=== PATIENT | female | born 1990 | race Caucasian/White ===

== ENCOUNTER 2019-01-29 16:22 | Outpatient (CLI) | payer OTHER ==
[2019-01-29 17:48] LABS: ADD UMIC NO; UR ASCORBIC ACID 40 mg/dL (NEGATIVE); UR BACTERIA FEW /HPF (NONE SEEN); UR BILIRUBIN (Dip) NEGATIVE (NEGATIVE); UR BLOOD (Dip) NEGATIVE (NEGATIVE); UR CLARITY SLIGHTLY CLOUDY (CLEAR); UR COLOR YELLOW (YELLOW); UR GLUCOSE (Dip) NEGATIVE (NEGATIVE); UR KETONES (Dip) TRACE mg/dL (NEGATIVE); UR LEUKOCYTE ESTERASE (Dip) NEGATIVE Leu/ul (NEGATIVE); UR MUCUS MODERATE /HPF (NONE SEEN); UR NITRITE (Dip) NEGATIVE (NEGATIVE); UR RBC 1 /HPF (0-5); UR SPECIFIC GRAVITY (Dip) 1.026 (1.003-1.030); UR SQUAMOUS EPITHELIAL CELL FEW /HPF (FEW); UR TOTAL PROTEIN (Dip) NEGATIVE (NEGATIVE); UR UROBILINOGEN (Dip) 1+ mg/dL (NEGATIVE); UR WBC 2 /HPF (0-5)
[2019-01-29 18:05] LABS: ADD MAN DIFF? NO
[2019-01-29 18:08] LABS: WHITE BLOOD COUNT 10.4 10^3/ul (4.8-10.8)
[2019-01-29 18:08] LABS: BASOPHILS % 0.4 % (0.0-2.0); EOSINOPHILS # 0.2 10^3/ul (0.0-0.5); EOSINOPHILS % 1.8 % (0.0-7.0); HEMATOCRIT 39.9 % (37.0-47.0); LYMPHOCYTES # 2.1 10^3/ul (0.8-2.9); LYMPHOCYTES % 19.8 % (15.0-51.0); MEAN CORPUSCULAR HEMOGLOBIN 28.3 pg (29.0-33.0); MEAN CORPUSCULAR HGB CONC 32.6 g/dl (32.0-37.0); MEAN CORPUSCULAR VOLUME 86.7 fl (82.0-101.0); MONOCYTE # 0.5 10^3/ul (0.3-0.9); MONOCYTES % 4.5 % (0.0-11.0); NEUTROPHIL # 7.6 10^3/ul (1.6-7.5); PLATELET COUNT 324 10^3/UL (140-415); RED CELL DISTRIBUTION WIDTH 13.7 % (11.5-14.5)
[2019-01-29 18:28] LABS: INR 0.91; PARTIAL THROMBOPLASTIN TIME 28.2 Sec (23.0-35.0); PROTIME 12.4 Sec (11.9-14.9)
[2019-01-29 18:33] LABS: ALANINE AMINOTRANSFERASE 14 IU/L (13-69); ALBUMIN 3.5 g/dl (3.3-4.9); ALBUMIN/GLOBULIN RATIO 0.97; ALKALINE PHOSPHATASE 193 IU/L (42-121); ANION GAP 10 (5-13); ASPARTATE AMINO TRANSFERASE 20 IU/L (15-46); BILIRUBIN,INDIRECT 0.3 mg/dl (0-1.1); BILIRUBIN,TOTAL 0.3 mg/dl (0.2-1.3); BLOOD UREA NITROGEN 11 mg/dl (7-20); CARBON DIOXIDE 18 mmol/L (21-31); CHLORIDE 108 mmol/L (97-110); CREATININE 0.56 mg/dl (0.44-1.00); Estimated GFR > 60 mL/min (>60); GLUCOSE 125 mg/dl (70-220); POTASSIUM 3.9 mmol/L (3.5-5.1); SODIUM 136 mmol/L (135-144); TOTAL PROTEIN 7.1 g/dl (6.1-8.1); URIC ACID 6.2 mg/dl (3.1-7.9)
== END 2019-01-29 19:00 | disposition home or self-care (01) ==
LOC: OBT 16:22 → L-D 16:23 → OBT 19:00
DX: O36.8130 Decreased fetal movements, third trimester, not applicable or unspecified (principal); O40.3XX0 Polyhydramnios, third trimester, not applicable or unspecified; Z3A.35 35 weeks gestation of pregnancy
CPT/HCPCS: 76818; 80053; 81001; 81003; 84560; 85025; 85384; 85610; 85730

== ENCOUNTER 2019-02-01 13:47 | Outpatient (CLI) | payer OTHER | END 2019-02-01 15:01 | disposition home or self-care (01) | LOC: OBT 13:47 → L-D 13:47 → OBT 15:01 | DX: O36.8330 Maternal care for abnormalities of the fetal heart rate or rhythm, third trimester, not applicable or unspecified (principal); O40.3XX0 Polyhydramnios, third trimester, not applicable or unspecified; Z3A.35 35 weeks gestation of pregnancy | CPT/HCPCS: 76818 ==

== ENCOUNTER 2019-02-03 14:00 | Outpatient (CLI) | payer OTHER | END 2019-02-03 16:47 | disposition home or self-care (01) | LOC: OBT 14:00 → L-D 14:01 → OBT 16:47 | DX: O40.3XX0 Polyhydramnios, third trimester, not applicable or unspecified (principal); Z3A.36 36 weeks gestation of pregnancy | CPT/HCPCS: 76818 ==

== ENCOUNTER 2019-02-08 03:26 | Outpatient (CLI) | payer OTHER ==
[2019-02-08 04:15] LABS: ADD UMIC NO; UR ASCORBIC ACID 40 mg/dL (NEGATIVE); UR BILIRUBIN (Dip) NEGATIVE (NEGATIVE); UR BLOOD (Dip) NEGATIVE (NEGATIVE); UR CLARITY CLEAR (CLEAR); UR COLOR YELLOW (YELLOW); UR GLUCOSE (Dip) NEGATIVE (NEGATIVE); UR KETONES (Dip) NEGATIVE (NEGATIVE); UR LEUKOCYTE ESTERASE (Dip) NEGATIVE Leu/ul (NEGATIVE); UR NITRITE (Dip) NEGATIVE (NEGATIVE); UR SPECIFIC GRAVITY (Dip) 1.014 (1.003-1.030); UR TOTAL PROTEIN (Dip) NEGATIVE (NEGATIVE); UR UROBILINOGEN (Dip) NEGATIVE (NEGATIVE)
[2019-02-08] MEDS: TERBUTALINE 1 MG/ML INJ SC (04:54)
[2019-02-08] MEDS: LACTATED RINGER'S 1,000 ML IV (04:54)
[2019-02-08] MEDS ORDERED: LACTATED RINGER'S 1,000 ML IV (05:00)
[2019-02-08 05:41] LABS: ADD MAN DIFF? NO
[2019-02-08 05:51] LABS: BASOPHIL # 0.1 10^3/ul (0.0-0.1); BASOPHILS % 0.5 % (0.0-2.0); EOSINOPHILS # 0.4 10^3/ul (0.0-0.5); EOSINOPHILS % 2.7 % (0.0-7.0); HEMATOCRIT 38.8 % (37.0-47.0); HEMOGLOBIN 12.6 g/dl (12.0-16.0); LYMPHOCYTES # 3.1 10^3/ul (0.8-2.9); LYMPHOCYTES % 22.5 % (15.0-51.0); MEAN CORPUSCULAR HEMOGLOBIN 28.4 pg (29.0-33.0); MEAN CORPUSCULAR HGB CONC 32.5 g/dl (32.0-37.0); MEAN CORPUSCULAR VOLUME 87.6 fl (82.0-101.0); MEAN PLATELET VOLUME 10.5 fl (7.4-10.4); MONOCYTE # 0.7 10^3/ul (0.3-0.9); NEUTROPHIL # 9.4 10^3/ul (1.6-7.5); NEUTROPHILS % 68.6 % (39.0-77.0); PLATELET COUNT 298 10^3/UL (140-415); RED BLOOD COUNT 4.43 10^6/ul (4.20-5.40); RED CELL DISTRIBUTION WIDTH 13.5 % (11.5-14.5)
[2019-02-08 05:51] LABS: WHITE BLOOD COUNT 13.8 10^3/ul (4.8-10.8)
[2019-02-08 06:38] LABS: INR 0.89; PARTIAL THROMBOPLASTIN TIME 26.9 Sec (23.0-35.0); PROTIME 12.1 Sec (11.9-14.9); PT RATIO 0.9
[2019-02-08 23:02] LABS: RAPID PLASMA REAGIN NONREACTIVE (NR)
== END 2019-02-08 06:38 | disposition home or self-care (01) ==
LOC: OBT 03:26 → L-D 03:28 → OBT 06:38
DX: O26.893 Other specified pregnancy related conditions, third trimester (principal); M54.9 Dorsalgia, unspecified; O36.8130 Decreased fetal movements, third trimester, not applicable or unspecified; Z3A.36 36 weeks gestation of pregnancy
CPT/HCPCS: 36415; 76815; 76818; 81003; 85025; 85610; 85730; 86592; 86850; 86900; 86901; 87086; 96360; 96361; 96372

== ENCOUNTER 2019-02-11 10:35 | Inpatient (IN) | payer OTHER ==
[~2019-02-11 10:35] MED LIST: METHYLERGONOVINE 0.2 MG INJ
[2019-02-11] MEDS ORDERED: CARBOPROST 250 MCG INJ IM ×3 (12:30→18:30)
[2019-02-11] MEDS ORDERED: OXYTOCIN 30 UNITS/LR 500 ML IV ×5 (12:30→18:30)
[2019-02-11] MEDS ORDERED: CEFAZOLIN 2 GM/50 ML (PMX) 50 ML IVPB ×2 (12:30→13:30)
[2019-02-11] MEDS ORDERED: METHYLERGONOVINE 0.2 MG INJ IM ×3 (12:30→18:30)
[2019-02-11] MEDS ORDERED: MISOPROSTOL 200 MCG TAB PR ×3 (12:30→18:30)
[2019-02-11] MEDS: LACTATED RINGER'S 1,000 ML IV ×2 (12:52→15:09)
[2019-02-11 12:54] LABS: ADD MAN DIFF? NO
[2019-02-11 13:04] LABS: WHITE BLOOD COUNT 11.2 10^3/ul (4.8-10.8)
[2019-02-11 13:04] LABS: BASOPHIL # 0.1 10^3/ul (0.0-0.1); BASOPHILS % 0.5 % (0.0-2.0); EOSINOPHILS # 0.2 10^3/ul (0.0-0.5); EOSINOPHILS % 1.9 % (0.0-7.0); HEMATOCRIT 40.6 % (37.0-47.0); HEMOGLOBIN 13.4 g/dl (12.0-16.0); LYMPHOCYTES # 2.2 10^3/ul (0.8-2.9); MEAN CORPUSCULAR HEMOGLOBIN 28.2 pg (29.0-33.0); MEAN CORPUSCULAR VOLUME 85.3 fl (82.0-101.0); MEAN PLATELET VOLUME 9.8 fl (7.4-10.4); MONOCYTE # 0.4 10^3/ul (0.3-0.9); MONOCYTES % 3.8 % (0.0-11.0); NEUTROPHIL # 8.2 10^3/ul (1.6-7.5); NEUTROPHILS % 73.1 % (39.0-77.0); PLATELET COUNT 302 10^3/UL (140-415); RED BLOOD COUNT 4.76 10^6/ul (4.20-5.40); RED CELL DISTRIBUTION WIDTH 13.6 % (11.5-14.5)
[2019-02-11 13:14] LABS: ADD UMIC NO; UR ASCORBIC ACID NEGATIVE (NEGATIVE); UR BILIRUBIN (Dip) NEGATIVE (NEGATIVE); UR BLOOD (Dip) NEGATIVE (NEGATIVE); UR CLARITY CLEAR (CLEAR); UR COLOR STRAW (YELLOW); UR GLUCOSE (Dip) NEGATIVE (NEGATIVE); UR KETONES (Dip) NEGATIVE (NEGATIVE); UR LEUKOCYTE ESTERASE (Dip) NEGATIVE Leu/ul (NEGATIVE); UR NITRITE (Dip) NEGATIVE (NEGATIVE); UR SPECIFIC GRAVITY (Dip) 1.003 (1.003-1.030); UR TOTAL PROTEIN (Dip) NEGATIVE (NEGATIVE); UR UROBILINOGEN (Dip) NEGATIVE (NEGATIVE)
[2019-02-11 13:17] LABS: INR 0.89; PARTIAL THROMBOPLASTIN TIME 26.7 Sec (23.0-35.0); PROTIME 12.1 Sec (11.9-14.9); PT RATIO 0.9
[2019-02-11 14:39] LABS: AMPHETAMINE/METHAMPHETAMINE Negative (NEGATIVE); BARBITURATES Negative (NEGATIVE); BENZODIAZEPINES Negative (NEGATIVE); CANNABINOIDS Negative (NEGATIVE); COCAINE Negative (NEGATIVE); OPIATES Negative (NEGATIVE)
[2019-02-11 14:51] LABS: HEPATITIS B SURFACE ANTIGEN NEGATIVE (NEGATIVE)
[2019-02-11 15:57] LABS: RAPID PLASMA REAGIN NONREACTIVE (NR)
[2019-02-11] MEDS: CITRIC ACID/NA CITRATE 30 ML CUP PO (16:45)
[2019-02-11] MEDS ORDERED: KETOROLAC 30 MG INJ (16:46)
[2019-02-11] MEDS ORDERED: METOCLOPRAMIDE 10 MG INJ (16:46)
[2019-02-11] MEDS ORDERED: ONDANSETRON 4 MG INJ (16:46)
[2019-02-11] MEDS ORDERED: morphine SULFATE/PF (10 MG/10 ML) INJ (16:46)
[2019-02-11] MEDS ORDERED: LIDOCAINE 1.5%/EPI MPF (SDV) 30 ML VIAL (17:32)
[2019-02-11] MEDS ORDERED: EPHEDrine 25 MG/5 ML SYG (18:20)
[2019-02-11] MEDS ORDERED: PHENYLephrine (100 MCG/ML) 10ML SYG (18:20)
[2019-02-11] MEDS ORDERED: OXYCODONE/ACETAMINOPHEN (5/325) TAB PO (18:30)
[2019-02-11] MEDS: CEFAZOLIN 2 GM/50 ML (PMX) 50 ML IVPB (18:30)
[2019-02-11] MEDS ORDERED: NACL 0.9% 3 ML SYG IV (18:30)
[2019-02-11 18:33] LABS: AADO2 Cord Arterial 22.7 mmHg; Arterial Cord Blood pCO2 88.5 mmHG (25-50); CBA COHb 0.5 %; CBA Total Hemglobin 14.2 g/dl; Cord Blood Arterial pO2 21.1 mmHG (15.0-45.0); Fraction OxyHgb Cord Arterial 24.3 %; MODE ROOM AIR; MetHgb Cord Arterial 2.2 %; Sample Type CBA; Site CORD
[2019-02-11 18:34] LABS: CBV Base Excess -14.5 mmol/L; CBV COHb 0 %; CBV Total Hemglobin 14.2 g/dl; Cord Blood Venous pO2 14.1 mmHG (15.0-45.0); Fraction OxyHgb Cord Venous 13.2 %; MODE ROOM AIR; MetHgb Cord Venous 2.4 %; Sample Type CBV; Site CORD
[2019-02-11] MEDS ORDERED: DIPHENHYDRAMINE 50 MG INJ IV ×2 (19:00)
[2019-02-11] MEDS ORDERED: NALOXONE (0.4 MG/ML) INJ IV (19:00)
[2019-02-11] MEDS ORDERED: ONDANSETRON 4 MG INJ IV ×2 (19:00)
[2019-02-11] MEDS ORDERED: morphine 2 MG INJ IV ×6 (19:00)
[2019-02-11] MEDS ORDERED: KETOROLAC 30 MG INJ IV ×2 (19:00)
[2019-02-11] MEDS: OXYTOCIN 30 UNITS/LR 500 ML IV ×2 (19:09→23:39)
[2019-02-11] MEDS: MISOPROSTOL 200 MCG TAB PO (22:49)
[2019-02-12] MEDS: LACTATED RINGER'S 1,000 ML IV ×3 (02:00→18:00)
[2019-02-12] MEDS: CEFAZOLIN 2 GM/50 ML (PMX) 50 ML IVPB ×3 (02:36→18:23)
[2019-02-12] MEDS: IBUPROFEN 600 MG TAB PO ×3 (06:00→23:55)
[2019-02-12 08:21] LABS: ADD MAN DIFF? NO
[2019-02-12 08:34] LABS: WHITE BLOOD COUNT 12.2 10^3/ul (4.8-10.8)
[2019-02-12 08:34] LABS: BASOPHIL # 0.1 10^3/ul (0.0-0.1); BASOPHILS % 0.6 % (0.0-2.0); EOSINOPHILS # 0.2 10^3/ul (0.0-0.5); EOSINOPHILS % 1.4 % (0.0-7.0); HEMATOCRIT 33.6 % (37.0-47.0); LYMPHOCYTES # 2.1 10^3/ul (0.8-2.9); LYMPHOCYTES % 17.2 % (15.0-51.0); MEAN CORPUSCULAR HEMOGLOBIN 28.1 pg (29.0-33.0); MEAN CORPUSCULAR HGB CONC 32.7 g/dl (32.0-37.0); MEAN CORPUSCULAR VOLUME 85.7 fl (82.0-101.0); MEAN PLATELET VOLUME 10.1 fl (7.4-10.4); MONOCYTE # 0.6 10^3/ul (0.3-0.9); MONOCYTES % 4.7 % (0.0-11.0); NEUTROPHIL # 9.3 10^3/ul (1.6-7.5); NEUTROPHILS % 75.5 % (39.0-77.0); PLATELET COUNT 220 10^3/UL (140-415); RED BLOOD COUNT 3.92 10^6/ul (4.20-5.40); RED CELL DISTRIBUTION WIDTH 13.5 % (11.5-14.5)
[2019-02-12] MEDS: KETOROLAC 30 MG INJ IV ×2 (08:53→14:30)
[2019-02-12] MEDS ORDERED: HYDROmorphONE 0.5 MG/0.5 ML SYG IV ×2 (09:00)
[2019-02-12] MEDS ORDERED: KETOROLAC 30 MG INJ IV (09:00)
[2019-02-12] MEDS ORDERED: NALOXONE (0.4 MG/ML) INJ IV (09:00)
[2019-02-12] MEDS ORDERED: ZOLPIDEM 5 MG TAB PO (09:00)
[2019-02-12] MEDS ORDERED: ONDANSETRON 4 MG INJ IV (09:00)
[2019-02-12] MEDS: DIPHENHYDRAMINE 50 MG INJ IV (10:48)
[2019-02-12] MEDS: OXYTOCIN 30 UNITS/LR 500 ML IV ×2 (10:51→19:00)
[2019-02-12] MEDS: OXYCODONE/ACETAMINOPHEN (5/325) TAB PO (21:30)
[2019-02-13] MEDS: IBUPROFEN 600 MG TAB PO ×4 (05:35→23:30)
[2019-02-13] MEDS: LANOLIN HPA 1 PKT TOP (09:10)
[2019-02-13] MEDS: OXYCODONE/ACETAMINOPHEN (5/325) TAB PO (16:01)
[2019-02-14] MEDS: IBUPROFEN 600 MG TAB PO ×2 (05:42→12:00)
[2019-02-14] MEDS: OXYCODONE/ACETAMINOPHEN (5/325) TAB PO (06:54)
== END 2019-02-14 15:20 | disposition home or self-care (01) | DRG 787 ==
LOC: OBT 10:35 → L-D 10:35 → OBT 12:00 → L-D 12:00 → PP1 20:38
PROC: 10D00Z1 Extraction of Products of Conception, Low, Open Approach (ICD-10-PCS; principal; 2019-02-11)
DX: O34.211 Maternal care for low transverse scar from previous cesarean delivery (principal); Z68.43 Body mass index [BMI] 50.0-59.9, adult; Z3A.37 37 weeks gestation of pregnancy; Z37.0 Single live birth; O99.213 Obesity complicating pregnancy, third trimester; E66.01 Morbid (severe) obesity due to excess calories; O24.419 Gestational diabetes mellitus in pregnancy, unspecified control
CPT/HCPCS: 36415; 36600; 80307; 81003; 82803; 85025; 85610; 85730; 86592; 86850; 86900; 86901; 87340; 99464